=== PATIENT | male | born 1935 | race Caucasian/White ===

== ENCOUNTER 2019-05-10 12:31 | Day surgery (SDC) | payer MEDICARE ==
[~2019-05-10] VITALS: Ht 170.2 cm; Wt 85.7 kg
[~2019-05-10 12:31] MED LIST: ASPI81TA85 PO; DUTA1CAP2 PO; LIDOCAINE 1% SDV INJ 30 ML VIAL As Ordered ONE; LISI10TA4 PO; LR 1,000 ML IV SCH; VITAD1000T PO; ZYLO300T6 PO; ceFAZolin SOD 2 GM in IV 1 EA IV SCH
[2019-05-10] MEDS ORDERED: propofoL 200 MG/20 ML VIAL As Ordered ONE (13:42)
[2019-05-10] MEDS ORDERED: LIDOCAINE 2% INJ 100 MG/5 ML SDV (FOR ANES.) As Ordered ONE (13:42)
[2019-05-10] MEDS ORDERED: fentaNYL 100 MCG/2 ML INJECTION (J3010) As Ordered ONE (13:43)
[2019-05-10] MEDS ORDERED: MIDAZOLAM INJ 2 MG/2 ML VIAL (J2250) As Ordered ONE (13:43)
[2019-05-10] MEDS ORDERED: ceFAZolin 2 GM/D5W 50 ML IV BAG (J0690 PER 500MG) As Ordered ONE (14:03)
[2019-05-10] MEDS ORDERED: KETOROLAC 60 MG/2 ML VIAL (J1885) As Ordered ONE (14:40)
[2019-05-10] MEDS ORDERED: ONDANSETRON 4MG/2ML VIAL (J2405) As Ordered ONE (14:40)
--- NOTE | 2019-05-10 15:07 | RO ---
DATE OF PROCEDURE: 05/10/2019 PREOPERATIVE DIAGNOSIS: Unexplained syncope. POSTOPERATIVE DIAGNOSIS: Unexplained syncope. FINDINGS: Unexplained syncope. OPERATIVE PROCEDURE: Implantation of a [employer] implantable loop recorder. SURGEON: Lele Gipson MD FLY RAIL OPERATOR: None. ANESTHESIA: Lidocaine 1% local/monitored anesthetic care. SPECIMENS: None. ESTIMATED BLOOD LOSS: Less than 1 mL BLOOD PRODUCTS REPLACED: None. DRAINS: None. COMPLICATIONS: None. DESCRIPTION OF OPERATION: The patient was prepped and draped over the left anterior chest. Lidocaine 1% was used for local anesthetic. Incision was made with a #15 blade approximately 1 cm in length about 1 inch lateral to the left parasternal border at approximately the left fourth interspace. The guide of the insertion tool was then placed into the incision and advanced parallel to the skin in the subcutaneous fat in a roughly 45 degrees left lateral-caudal direction. The insertion tool was then rotated 180 degrees. The punch was then placed into the insertion tool and was used to advance the loop recorder into the subcutaneous fat. The punch was then removed and then the insertion tool was removed leaving the loop recorder behind. The initial R wave amplitude measured 0.45 mV. Next a 4-0 Biosyn suture was placed subcuticular to temporarily approximate the incision line with the ends of the suture protruding 1 cm beyond the incision line on either side of its long access. The suture was used to keep the skin well approximated during application of Dermabond. Next, three layers of Dermabond was applied. The Biosyn suture was then pulled through the incision line and removed in its entirety. The implantable loop recorder implanted was a [employer] Reveal LINQ, model LNQ11 with serial # [id number].
[2019-05-10 15:15] VITALS: BP 163/81
== END 2019-05-10 15:30 | disposition home or self-care (01) ==
LOC: M SDC 12:31
PROVIDERS: ATTEND Internal Medicine Cardiovascular Disease
DX: R55 Syncope and collapse (principal); I11.9 Hypertensive heart disease without heart failure; R42 Dizziness and giddiness; R94.31 Abnormal electrocardiogram [ECG] [EKG]; M10.9 Gout, unspecified; M19.90 Unspecified osteoarthritis, unspecified site; N40.0 Benign prostatic hyperplasia without lower urinary tract symptoms; Z87.891 Personal history of nicotine dependence; Z79.899 Other long term (current) drug therapy; Z79.82 Long term (current) use of aspirin
CPT/HCPCS: 33285; C1764; J0690; J1885; J2250; J2405; J3010

== ENCOUNTER 2021-01-14 18:11 | Observation (INO) | payer MEDICARE ==
[~2021-01-14] VITALS: Ht 172.7 cm; Wt 77.3 kg
[~2021-01-14 18:11] MED LIST changes: -ASPI81TA85 PO; +ASPI81TA86 PO; +D31000TA2 PO; -LIDOCAINE 1% SDV INJ 30 ML VIAL As Ordered ONE; +LISI10TA22 PO; -LISI10TA4 PO; -LR 1,000 ML IV SCH; -VITAD1000T PO; -ceFAZolin SOD 2 GM in IV 1 EA IV SCH
[2021-01-14 19:03] LABS: BASO # 0.1 10^3/uL (0.0-0.2); BASO % 0.7 % (0.0-1.0); EOS # 0.2 10^3/uL (0.0-0.5); EOS % 2.1 % (0.0-3.0); HEMATOCRIT 47.3 % (42.0-52.0); HEMOGLOBIN 14.9 g/dl (13.5-17.5); LYMPH # 1.1 10^3/uL (1.5-5.0); LYMPH % 14.6 % (24.0-44.0); MEAN CORPUSCULAR HGB CONC 31.5 g/dl (32.0-36.5); MEAN CORPUSCULAR VOLUME 92.2 fl (80.0-96.0); MONO # 0.5 10^3/uL (0.0-0.8); MONO % 6.6 % (2.0-8.0); NEUTROPHILS # 5.7 10^3/uL (1.5-8.5); NEUTROPHILS % 75.5 % (36.0-66.0); PLATELET COUNT, AUTOMATED 205 10^3/uL (150-450); RED BLOOD COUNT 5.13 10^6/uL (4.30-6.10); WHITE BLOOD COUNT 7.6 10^3/uL (4.0-10.0)
[2021-01-14 19:19] LABS: ALBUMIN 3.8 GM/DL (3.2-5.2); BILIRUBIN,DIRECT 0.1 MG/DL (0.0-0.2); BILIRUBIN,TOTAL 0.3 MG/DL (0.2-1.0); CALCIUM LEVEL 8.4 MG/DL (8.8-10.2); CREATININE FOR GFR 1.56 MG/DL (0.70-1.30); ETHYL ALCOHOL (ETHANOL) 0.065 % (0.000-0.010); GLOMERULAR FILTRATION RATE 45.5 (>35); POTASSIUM SERUM 3.9 MEQ/L (3.5-5.1); THYROID STIMULATING HORMONE 1.19 uIU/ML (0.358-3.740); TOTAL PROTEIN 6.9 GM/DL (6.4-8.2)
[2021-01-14] MEDS ORDERED: ALLO300T2 PO (23:06)
[2021-01-14] MEDS ORDERED: LISI20TA33 PO (23:06)
[2021-01-14] MEDS ORDERED: HOME MED LIST COMPLETE! XX SCH (23:10)
[2021-01-15] MEDS ORDERED: HEPARIN SOD (PORCINE) 5000UNITS/ML 1ML VIAL/SYRINGE SC SCH (00:10)
[2021-01-15 01:19] LABS: PHOSPHORUS LEVEL 3.5 MG/DL (2.5-4.9); URIC ACID 4.4 MG/DL (3.5-7.2)
[2021-01-15 04:24] VITALS: BP 196/96
[2021-01-15] MEDS ORDERED: **hydrALAZINE** 10 MG TAB PO PRN (05:20)
[2021-01-15 06:05] LABS: BASO # 0.1 10^3/uL (0.0-0.2); BASO % 0.8 % (0.0-1.0); EOS # 0.2 10^3/uL (0.0-0.5); EOS % 3.2 % (0.0-3.0); HEMOGLOBIN 14.2 g/dl (13.5-17.5); LYMPH # 1.3 10^3/uL (1.5-5.0); LYMPH % 17.8 % (24.0-44.0); MEAN CORPUSCULAR HEMOGLOBIN 28.7 pg (27.0-33.0); MEAN CORPUSCULAR HGB CONC 31.6 g/dl (32.0-36.5); MEAN CORPUSCULAR VOLUME 90.9 fl (80.0-96.0); MONO # 0.7 10^3/uL (0.0-0.8); MONO % 10.4 % (2.0-8.0); NEUTROPHILS # 4.8 10^3/uL (1.5-8.5); NEUTROPHILS % 67.2 % (36.0-66.0); PLATELET COUNT, AUTOMATED 168 10^3/uL (150-450); RED BLOOD COUNT 4.95 10^6/uL (4.30-6.10); WHITE BLOOD COUNT 7.1 10^3/uL (4.0-10.0)
[2021-01-15 07:17] LABS: ALBUMIN 3.4 GM/DL (3.2-5.2); ALT/SGPT 26 U/L (12-78); BILIRUBIN,TOTAL 0.5 MG/DL (0.2-1.0); BLOOD UREA NITROGEN 24 MG/DL (7-18); CALCIUM LEVEL 8.1 MG/DL (8.8-10.2); CARBON DIOXIDE LEVEL 26 MEQ/L (21-32); CHLORIDE LEVEL 111 MEQ/L (98-107); GLOMERULAR FILTRATION RATE > 60.0 (>35); GLUCOSE, FASTING 114 MG/DL (70-100); MAGNESIUM LEVEL 2.4 MG/DL (1.8-2.4); POTASSIUM SERUM 4.2 MEQ/L (3.5-5.1); SODIUM LEVEL 142 MEQ/L (136-145); TOTAL PROTEIN 6.1 GM/DL (6.4-8.2)
[2021-01-15 09:10] LABS: TOTAL 25(OH) VITAMIN D 38.6 NG/ML (30.0-100.0)
[2021-01-15 09:22] LABS: HEPATITIS B SURFACE ANTIGEN NEGATIVE (NEGATIVE)
[2021-01-15 09:45] LABS: HEPATITIS C VIRUS ABY INDEX 0.1 INDEX (<0.8)
[2021-01-15 09:48] LABS: HEPATITIS B CORE ANTIBODY IGM NEGATIVE (NEGATIVE)
[2021-01-15 12:44] VITALS: BP 164/82
== END 2021-01-15 13:01 | disposition home or self-care (01) ==
LOC: EDBD 18:11 → M ED 18:11 → M ED INP 18:12 → ENRESERV 01-15 07:45
PROVIDERS: ADMIT Internal Medicine; ATTEND Internal Medicine
DX: R55 Syncope and collapse (principal); N17.9 Acute kidney failure, unspecified; N18.30 Chronic kidney disease, stage 3 unspecified; I12.9 Hypertensive chronic kidney disease with stage 1 through stage 4 chronic kidney disease, or unspecified chronic kidney disease; N40.0 Benign prostatic hyperplasia without lower urinary tract symptoms; M10.9 Gout, unspecified; Z79.899 Other long term (current) drug therapy
CPT/HCPCS: 36415; 70450; 70551; 71045; 76775; 80047; 80048; 80053; 80076; 81001; 82077; 82306; 82652; 83735; 83930; 84100; 84443; 84484; 84550; 85025; 86705; 86709; 86803; 87340; 87798; 93005; 93041; 94760; 99285; G0378

== ENCOUNTER → 2022-01-06 | Outpatient (CLI) | payer MEDICARE ==
[~2022-01-06] MED LIST changes: +ALLO300T2 PO; +CHOL125C6 PO; -D31000TA2 PO; +LISI20TA33 PO; +NAPR1CAP PO; +PROHANCE 279.3MG/ML 15ML VIAL As Ordered ONE; +PROHANCE 279.3MG/ML 5ML VIAL As Ordered ONE; +TAMS1CAP17 PO; +VITA100093 PO
== END ==
LOC: M RAD 13:08
PROVIDERS: ATTEND Specialist
DX: K86.9 Disease of pancreas, unspecified (principal)
CPT/HCPCS: 74183; A9576

== ENCOUNTER 2022-01-11 11:58 | Observation (INO) | payer MEDICARE ==
[~2022-01-11] VITALS: Ht 170.2 cm; Wt 66.4 kg
[~2022-01-11 11:58] MED LIST changes: -CHOL125C6 PO; -NAPR1CAP PO; -PROHANCE 279.3MG/ML 15ML VIAL As Ordered ONE; -PROHANCE 279.3MG/ML 5ML VIAL As Ordered ONE
[2022-01-11] MEDS ORDERED: LR 1,000 ML IV SCH (12:45)
[2022-01-11 13:28] LABS: HEMATOCRIT 35.9 % (42.0-52.0); HEMOGLOBIN 12.2 g/dl (13.5-17.5); MEAN CORPUSCULAR HEMOGLOBIN 27.6 pg (27.0-33.0); MEAN CORPUSCULAR VOLUME 81.2 fl (80.0-96.0); PLATELET COUNT, AUTOMATED 270 10^3/uL (150-450); RED BLOOD COUNT 4.42 10^6/uL (4.30-6.10); WHITE BLOOD COUNT 9.4 10^3/uL (4.0-10.0)
[2022-01-11 13:52] LABS: INR 1.13; PROTHROMBIN TIME 14.8 SECONDS (12.5-14.5)
[2022-01-11] MEDS ORDERED: CHOL125C6 PO (13:52)
[2022-01-11] MEDS ORDERED: NAPR1CAP PO (13:55)
[2022-01-11] MEDS ORDERED: HOME MED LIST COMPLETE! XX SCH (14:00)
[2022-01-11 14:24] LABS: ALBUMIN 2.5 G/DL (3.2-5.2); ALT/SGPT 274 U/L (7.0-40); BLOOD UREA NITROGEN 21 MG/DL (9-23); CALCIUM LEVEL 8.8 MG/DL (8.3-10.6); CARBON DIOXIDE LEVEL 26 MMOL/L (20-31); CHLORIDE LEVEL 103 MMOL/L (98-107); GLOMERULAR FILTRATION RATE > 60.0 (>35); GLUCOSE, FASTING 110 MG/DL (74-106); POTASSIUM SERUM 3.9 MMOL/L (3.5-5.1); SODIUM LEVEL 139 MMOL/L (136-145); TOTAL PROTEIN 5.8 G/DL (5.7-8.2)
[2022-01-11] MEDS ORDERED: propofoL 200 MG/20 ML VIAL As Ordered ONE (16:00)
[2022-01-11] MEDS ORDERED: ROCURONIUM BROMIDE 50 MG/5 ML VIAL As Ordered ONE (16:00)
[2022-01-11] MEDS ORDERED: LIDOCAINE 2% INJ 100 MG/5 ML SYRINGE As Ordered ONE (16:00)
[2022-01-11] MEDS ORDERED: fentaNYL 100 MCG/2 ML INJECTION As Ordered ONE (16:02)
[2022-01-11] MEDS ORDERED: ISOVUE-300 61% 50ML VIAL As Ordered ONE (16:14)
[2022-01-11] MEDS ORDERED: CIPROFLOXACIN/D5W 400 MG/200 ML BAG As Ordered ONE (16:33)
[2022-01-11 16:52] LABS: ALBUMIN 2.4 G/DL (3.2-5.2); BILIRUBIN,DIRECT 14.4 MG/DL (<0.4); BILIRUBIN,TOTAL 18.7 MG/DL (0.3-1.2); FERRITIN 1093.9 NG/ML (10.5-307.3); FOLATE 9.23 NG/ML (>5.4); PERCENT SATURATION 16.7 % (19.7-50.0); TOTAL PROTEIN 5.4 G/DL (5.7-8.2)
[2022-01-11 17:25] LABS: HEPATITIS B CORE ANTIBODY IGM NEGATIVE (NEGATIVE); HEPATITIS B SURFACE ANTIGEN NEGATIVE (NEGATIVE); HEPATITIS C VIRUS ABY INDEX 0.1 INDEX (<0.8)
[2022-01-11] MEDS ORDERED: fentaNYL 100 MCG/2 ML INJECTION IV PRN (18:10)
[2022-01-11] MEDS ORDERED: oxyCODONE 5MG TAB PO PRN (18:10)
[2022-01-11] MEDS ORDERED: ONDANSETRON 4MG 2ML VIAL IV PRN (18:10)
[2022-01-11 19:30] VITALS: BP 131/72
[2022-01-11 20:00] VITALS: BP 134/68
[2022-01-11 20:30] VITALS: BP 125/67
[2022-01-11] MEDS ORDERED: TAMSULOSIN 0.4 MG CAP PO SCH ×2 (21:00)
[2022-01-11] MEDS ORDERED: VITAMIN D 1,000 INTERNATIONAL UNITS TABLET PO SCH (21:00)
[2022-01-11] MEDS ORDERED: allopurinoL 300 MG TAB PO SCH (21:00)
[2022-01-11 21:30] VITALS: BP 127/68
[2022-01-11] MEDS: SUCRALFATE SUSP 1GM/10ML UD PO SCH (21:57)
[2022-01-11 22:30] VITALS: BP 133/72
[2022-01-11 23:30] VITALS: BP 133/73
[2022-01-12 00:30] VITALS: BP 132/73
[2022-01-12 04:30] VITALS: BP 138/78
[2022-01-12 06:06] LABS: BASO # 0.1 10^3/uL (0.0-0.2); BASO % 0.5 % (0.0-1.0); EOS # 0.1 10^3/uL (0.0-0.5); EOS % 0.5 % (0.0-3.0); HEMATOCRIT 33.6 % (42.0-52.0); HEMOGLOBIN 11.8 g/dl (13.5-17.5); LYMPH # 0.6 10^3/uL (1.5-5.0); LYMPH % 5.3 % (24.0-44.0); MEAN CORPUSCULAR HEMOGLOBIN 27.7 pg (27.0-33.0); MEAN CORPUSCULAR HGB CONC 35.1 g/dl (32.0-36.5); MEAN CORPUSCULAR VOLUME 78.9 fl (80.0-96.0); MONO # 0.9 10^3/uL (0.0-0.8); MONO % 8.1 % (2.0-8.0); NEUTROPHILS # 9.7 10^3/uL (1.5-8.5); NEUTROPHILS % 84.6 % (36.0-66.0); PLATELET COUNT, AUTOMATED 298 10^3/uL (150-450); RED BLOOD COUNT 4.26 10^6/uL (4.30-6.10); WHITE BLOOD COUNT 11.5 10^3/uL (4.0-10.0)
[2022-01-12 06:43] LABS: ALBUMIN 2.4 G/DL (3.2-5.2); ALT/SGPT 234 U/L (7.0-40); BILIRUBIN,TOTAL 16.3 MG/DL (0.3-1.2); BLOOD UREA NITROGEN 22 MG/DL (9-23); CALCIUM LEVEL 8.7 MG/DL (8.3-10.6); CARBON DIOXIDE LEVEL 24 MMOL/L (20-31); CHLORIDE LEVEL 101 MMOL/L (98-107); CREATININE FOR GFR 0.88 MG/DL (0.70-1.30); GLOMERULAR FILTRATION RATE > 60.0 (>35); GLUCOSE, FASTING 126 MG/DL (74-106); SODIUM LEVEL 136 MMOL/L (136-145); TOTAL PROTEIN 5.4 G/DL (5.7-8.2)
[2022-01-12 08:00] VITALS: BP_SYST 136; BP_SYST 152; BP_SYST 88; BP_DIAS 55; BP_DIAS 77; BP_DIAS 86
[2022-01-12] MEDS: SUCRALFATE SUSP 1GM/10ML UD PO SCH (08:17)
[2022-01-12] MEDS ORDERED: OMEPRAZOLE 20MG CAP PO SCH (09:00)
[2022-01-12 10:00] VITALS: BP 121/68
[2022-01-12] MEDS ORDERED: LR 1,000 ML IV ONE (10:45)
[2022-01-12 13:20] VITALS: BP_SYST 109; BP_SYST 171; BP_SYST 174; BP_DIAS 69; BP_DIAS 86
[2022-01-12] MEDS ORDERED: RIVAROXABAN 15MG TAB (XARELTO) PO SCH (13:50)
[2022-01-12] MEDS ORDERED: SUCR1ORA PO (14:53)
[2022-01-12] MEDS ORDERED: XARE1TAB PO (14:53)
[2022-01-12] MEDS ORDERED: OMEP40CA4 PO (14:53)
[2022-01-12] MEDS ORDERED: ELIQ5TAB PO (15:07)
[2022-01-12] MEDS ORDERED: SUCR1TA PO (15:58)
[2022-01-12] MEDS ORDERED: APIXABAN 5 MG TAB (ELIQUIS) PO SCH (16:00)
== END 2022-01-12 16:04 | disposition home or self-care (01) ==
LOC: M SDC 11:58 → M ED INP 11:59 → M MSPAV 19:35
PROVIDERS: ADMIT Student in an Organized Health Care Education/Training Program; ATTEND Internal Medicine Gastroenterology
DX: K83.1 Obstruction of bile duct (principal); C25.0 Malignant neoplasm of head of pancreas; E80.6 Other disorders of bilirubin metabolism; R74.01 Elevation of levels of liver transaminase levels; I95.1 Orthostatic hypotension; K29.70 Gastritis, unspecified, without bleeding; R16.1 Splenomegaly, not elsewhere classified; D50.9 Iron deficiency anemia, unspecified; K55.011 Focal (segmental) acute (reversible) ischemia of small intestine; I10 Essential (primary) hypertension; N40.0 Benign prostatic hyperplasia without lower urinary tract symptoms; M10.9 Gout, unspecified; E55.9 Vitamin D deficiency, unspecified; R26.81 Unsteadiness on feet; R63.4 Abnormal weight loss; Z79.899 Other long term (current) drug therapy; Z87.891 Personal history of nicotine dependence; Z80.0 Family history of malignant neoplasm of digestive organs
CPT/HCPCS: 36415; 43274; 74330; 76700; 80053; 80076; 82270; 82607; 82728; 82746; 83550; 83605; 85025; 85027; 85610; 86705; 86709; 86803; 86850; 86900; 86901; 87340; 87635; 88104; 93975; 97162; A4649; C1874; G0378; J0744; J3010; Q9967

== ENCOUNTER → 2022-01-17 | Outpatient (CLI) | payer MEDICARE ==
[~2022-01-17] MED LIST changes: +CHOL125C6 PO; +ELIQ5TAB PO; +NAPR1CAP PO; +OMEP40CA4 PO; +SUCR1ORA PO; +SUCR1TA PO; +XARE1TAB PO
== END ==
LOC: M PLARAD 12:49
PROVIDERS: ATTEND Specialist
DX: R93.5 Abnormal findings on diagnostic imaging of other abdominal regions, including retroperitoneum (principal)
CPT/HCPCS: 78815; A9552

== ENCOUNTER → 2022-02-07 | Outpatient (CLI) | payer MEDICARE | LOC: M LABSMTC 09:22 | DX: Z01.812 Encounter for preprocedural laboratory examination (principal); K86.89 Other specified diseases of pancreas; Z20.822 Contact with and (suspected) exposure to COVID-19 ==

== ENCOUNTER → 2022-02-21 | Outpatient (CLI) | payer MEDICARE ==
[~2022-02-21] MED LIST changes: +CREO12CA PO; +ONDA-84 PO; +POTA10CA33 PO; +PROC10TA5 PO
== END ==
LOC: M LABSMTC 10:28
PROVIDERS: ATTEND Anesthesiology
DX: Z01.818 Encounter for other preprocedural examination (principal)

== ENCOUNTER → 2022-02-24 | Outpatient (CLI) | payer MEDICARE ==
[~2022-02-24] MED LIST changes: +LIDO1CRE42 TOP; +LIDOCAINE 1% MDV 20ML VIAL As Ordered ONE; +MIDAZOLAM INJ 2MG/2ML VIAL As Ordered ONE; +NS 1,000 ML IV SCH; +ceFAZolin 2 GM/D5W 50 ML IV BAG As Ordered ONE; +ceFAZolin SOD 2 GM in IV 1 EA IV ONE; +diphenhydrAMINE 50MG/ML VIAL As Ordered ONE; +fentaNYL 100 MCG/2 ML INJECTION As Ordered ONE
[2022-02-24 15:03] VITALS: BP 144/74
== END ==
LOC: M IRPRO 10:46
PROVIDERS: ATTEND Specialist
DX: C25.9 Malignant neoplasm of pancreas, unspecified (principal)
CPT/HCPCS: 36561; 99152; 99153; C1769; C1788; C1894

== ENCOUNTER → 2022-03-09 | Outpatient (CLI) | payer MEDICARE ==
[~2022-03-09] MED LIST changes: -LIDOCAINE 1% MDV 20ML VIAL As Ordered ONE; -MIDAZOLAM INJ 2MG/2ML VIAL As Ordered ONE; -NS 1,000 ML IV SCH; -ceFAZolin 2 GM/D5W 50 ML IV BAG As Ordered ONE; -ceFAZolin SOD 2 GM in IV 1 EA IV ONE; -diphenhydrAMINE 50MG/ML VIAL As Ordered ONE; -fentaNYL 100 MCG/2 ML INJECTION As Ordered ONE
== END ==
LOC: M ONCR 08:52
PROVIDERS: ATTEND General Practice
DX: C25.0 Malignant neoplasm of head of pancreas (principal); C78.7 Secondary malignant neoplasm of liver and intrahepatic bile duct; Z79.899 Other long term (current) drug therapy; Z87.891 Personal history of nicotine dependence; Z80.0 Family history of malignant neoplasm of digestive organs; I10 Essential (primary) hypertension

== ENCOUNTER → 2022-03-15 | Outpatient (POV) | payer MEDICARE ==
[~2022-03-15] VITALS: Ht 170.2 cm; Wt 75.0 kg
[2022-03-15 14:50] VITALS: BP 156/80
== END ==
LOC: M IRPOV 14:30
PROVIDERS: ATTEND Radiology Diagnostic Radiology
DX: Z45.2 Encounter for adjustment and management of vascular access device (principal)

== ENCOUNTER → 2022-03-16 | Outpatient (CLI) | payer MEDICARE ==
[~2022-03-16] MED LIST changes: +GASTROGRAFIN SOLUTION 30ML As Ordered ONE; +ISOVUE-370 76% 100ML VIAL As Ordered ONE
== END ==
LOC: M RAD 07:30
PROVIDERS: ATTEND General Practice
DX: C25.0 Malignant neoplasm of head of pancreas (principal)
CPT/HCPCS: 74178; Q9963; Q9967

== ENCOUNTER 2022-04-12 13:34 | Outpatient (RCR) | payer MEDICARE ==
[~2022-04-12 13:34] MED LIST changes: -GASTROGRAFIN SOLUTION 30ML As Ordered ONE; -ISOVUE-370 76% 100ML VIAL As Ordered ONE; +REGL5TAB2 PO
[2022-04-19] MEDS ORDERED: PEPT262C2 PO (08:59)
== END 2022-04-19 ==
LOC: M ONCR 13:34
PROVIDERS: ATTEND General Practice
DX: C25.0 Malignant neoplasm of head of pancreas (principal)

== ENCOUNTER → 2022-05-03 | Outpatient (CLI) | payer MEDICARE ==
[~2022-05-03] MED LIST changes: +LOPE-39 PO; +PEPT262C2 PO
== END ==
LOC: M RAD 10:02
PROVIDERS: ATTEND Nurse Practitioner
DX: I82.432 Acute embolism and thrombosis of left popliteal vein (principal); I82.412 Acute embolism and thrombosis of left femoral vein; R22.42 Localized swelling, mass and lump, left lower limb; C61 Malignant neoplasm of prostate

== ENCOUNTER → 2022-05-17 | Outpatient (CLI) | payer MEDICARE ==
[~2022-05-17] MED LIST changes: +BACT800T5 PO
== END ==
LOC: M RAD 10:40
PROVIDERS: ATTEND Nurse Practitioner
DX: C25.9 Malignant neoplasm of pancreas, unspecified (principal)

== ENCOUNTER → 2022-05-25 | Outpatient (CLI) | payer MEDICARE ==
[~2022-05-25] VITALS: Ht 170.2 cm; Wt 70.8 kg
[~2022-05-25] MED LIST changes: +DEXA2TA PO; +SLOWTAB2 PO; +VITA200048 PO
[2022-05-25 08:33] VITALS: BP 88/64
== END ==
LOC: M PAL 08:25
PROVIDERS: ATTEND Nurse Practitioner Adult Health
DX: C25.9 Malignant neoplasm of pancreas, unspecified (principal); Z92.3 Personal history of irradiation; Z92.21 Personal history of antineoplastic chemotherapy; Z51.5 Encounter for palliative care; R63.0 Anorexia; R53.83 Other fatigue; R11.0 Nausea; Z66 Do not resuscitate; Z86.718 Personal history of other venous thrombosis and embolism; Z79.899 Other long term (current) drug therapy; R19.7 Diarrhea, unspecified